=== PATIENT | female | born 1995 | race Caucasian/White ===

== ENCOUNTER 2024-10-24 20:34 | Emergency (ER) | payer OTHER, SELFPAY ==
--- OUTSIDE RECORDS SUMMARY | 2024-10-14 06:35 | XMS_ITS | Continuity of Care Document ---
Author Organization [facility] Address [address] [place] [address] Phone Care Team Providers Care Graphics Specialist Name Role Phone Natalie Mendiola DDS Unavailable Unavailable Advance Directives Directive Yes / No Effective Date File Name No Information Encounters Encounter Description Practice Location Reason(s) For Visit Diagnoses Date Provider Providers Copied on Encounter [facility], [address] [place] [address], [id number], [place] tel:[phone] Dental Clinic No Information Maury MORALES Natalie. . tel:[phone] Family History Family Member Type Diagnosis Age At Onset No Information Payers Payer name Insurance type Covered republican ID Authoriza tion(s) No Information Social History Type Description Quantity Date Captured Comments Sex Female Smoking Status No Information Sexual Orientation Straight or heterosexual Gender Identity Female Chief Complaint And Reason For Visit No Information Reason For Referral Reason For Referral No Information History Of Present Illness Encounter Date Complaint History Of Prese nt Illness No Information Functional Status Date Functional Assessmen t No Information Instructions Date Instruction Additional Infor mation No Information Assessments Type Assessment Date No Information Patient Care Teams Name Effective Dates (start - stop) Status Members No Information
[2024-10-24] VITALS (12 sets, daily range): BP systolic 123–146; BP diastolic 65–98; PULSE 47–67; TEMP 36.9; O2SAT 94–99; BMI 36.9
[2024-10-24 21:19] LABS: Hematocrit 41.6 % (36.0-48.0); Hemoglobin 14.6 g/dL (12.0-16.0); Mean Corpuscular HGB Conc 35.1 g/dL (29.9-35.2); Mean Corpuscular Hemoglobin 32.5 pg (26.7-34.0); Mean Corpuscular Volume 92.7 fL (81.0-99.0); Platelet Count 225 10^3/uL (150-450); Red Blood Count 4.49 10^6/uL (4.20-5.40); White Blood Count 5.8 10^3/uL (4.0-11.0)
[2024-10-24 21:28] LABS: Alanine Aminotransferase 70 U/L (14-59); Albumin Globulin Ratio 0.8; Albumin Level 3.9 g/dL (3.4-5.0); Alkaline Phosphatase 49 U/L (46-116); Anion Gap 17.7; Aspartate Amino Transferase 41 U/L (15-37); Blood Urea Nitrogen 16.0 mg/dL (7.0-18.0); Calcium 9.4 mg/dL (8.5-10.1); Carbon Dioxide 22.9 mmol/L (21.0-32.0); Chloride 104 mmol/L (98-107); Estimated GFR (African America >60 (>=60 mL/min/1.73m^2); Estimated GFR (Non-African Ame >60 (>=60 mL/min/1.73m^2); Globulin 4.7 g/dL; Glucose 177 mg/dL (74-106); Lipase 19.0 U/L (16.0-77.0); Magnesium 1.3 mg/dL (1.8-2.4); Potassium 3.6 mmol/L (3.5-5.1); Sodium 141 mmol/L (136-145); Total Protein 8.6 g/dL (6.4-8.2)
--- OUTSIDE RECORDS SUMMARY | 2024-10-24 21:33 | XMS_ITS | Patient Health Record ---
Author Organization [facility] es Address [address] [place] [address] Care Team Providers Care Loan Interviewer Mortgage Name Role Phone rosBrandi Wilcox Primary Care Provider Christiane Ornelas [phone] Allergies Allergen (clinical drug ingredient) Drug/Non Drug Allergy documented on EMR Reaction Allergy Type Onset Date Status Lourdes dentonjose alberto Drug Allergy Active Reason For Referral No Information Medications Medication SIG (Take, Route, Frequency, Duration) Notes Start Date End Date Status Nexplanon 68 MG as directed Subcutaneous Active hydrOXYzine Pamoate 25 MG 1 capsule as n eeded Orally Once a day; Duration: 10 days 11/04/2021 Active Cortisporin Otic 1%-0.35%-1000 units/ml 2-5 drops into each affected ear four times a day; Duration: 10 days Active Lexapro 10 MG 1 tablet Orally Once a day; Duration: 30 day(s) 11/04/2021 Active Social History Tobacco Use: Social History Observation Description Date Details (start date - stop date) Current Smoker NA - NA Tobacco Screen: Question Answer Notes Are you a: current smoker How often do you smoke cigarettes? every day How many cigarettes a day do you smoke? 6-10 How soon after you wake up do you smoke your fir st cigarette? after 60 min Are you interested in quitting? Not ready to tanya t Alcohol Screening: Question Answer Notes Did you have a drink containing alcohol in the p ast year? No Points 0 Interpretation Negative Depression Screening (PHQ-9): Question Answer Notes Little interest or pleasure in doing things More than half the days Feeling down, depressed, or hopeless More than h detention the days Trouble falling or staying a sleep, or sleeping too much Nearly every day Feeling tired or having little energy Several da ys Poor appetite or overeating Nearly every day Feeling bad about yourself-o r that you are a failure or have let yourself or your family down Nearly every day Trouble concentrating on thi ngs, such as reading the newspaper or watching television More than half the days Moving or speaking so slowly that other people could have noticed. Or the opposite being so fidgety or restless that you have been moving around a lot more than usual More than half the days Thoughts that you would be b shivani off , or of hurting yourself in some way Not at all Total Score 18 Intepretation Moderately severe depression Problems Problem Type SNOMED Code ICD Code Onset Dates Problem Status W/U Status Risk Notes Problem Panic attack (222613955) Panic attack (F41.0) Active confirmed Problem Moderate episode of recurrent major depressive disorder (F33.1) Active confirmed Plan Of Treatment No Information Insurance Providers Payer Name Payer Address Payer Phone Subscriber Number Group Number Insured Name Patient Relationship to Insured Coverage Start Date Coverage End Date z[employer] E-termed [address] [place] [address] [id number] [place] DICKENS Self - patient is the insured [address] [facility] after [employer] -termed [address] [place] [address] [id number] [place] DICKENS Self - patient is the insured 2 Medical (General) History Medical History History ICD Code 2 c sections rt knee tilt syndrome anxiety bipolar DEPRESSION panic attacks Surgical History Surgery Date(Month/Year) 2x c sections knee surgery Hospitalization History Reason Date(Month/Year) see above
--- OUTSIDE RECORDS SUMMARY | 2024-10-24 21:33 | XMS_ITS | Clinical Summary ---
Author Organization [facility] Address [address] [place] [address] Care Team Providers Care Ship Manager Name Role Phone Karla Kaur MD Primary Care Provider [phone] Karla Kaur MD Unavailable [phone] Allergies No known active allergies Medications multivitamin () 27-0.8 MG tabletIndications: Nexplanon removal Take 1 tablet by mouth Daily 90 tablet 3 08/07/19 25 026 Active Rimegepant Sulfate (Nurtec) 75 MG tablet dispersibleIndicat ions:Nonintractabl e episodic headache, unspecified headache type Take 75 mg by mouth every other day 30 tablet 1 08/07/19 25 Active clomiPHENE (Clomid) 50 MG tabletIndications: Anovulation Take day 5-9 of cycle 5 tablet 3 10/08/19 25 Active FLUoxetine (PROzac) 20 MG capsuleIndications :Anxiety Take 1 capsule (20 mg) by mouth Daily 100 capsule 3 10/22/19 25 026 Active ondansetron ODT (Zofran-ODT) 8 MG disintegrating tabletIndications: Nausea Take 1 tablet (8 mg) by mouth every 8 (eight) hours if needed for nausea or vomiting for up to 10 days 20 tablet 10/22/19 25 025 Active ondansetron ODT (Zofran-ODT) 8 MG disintegrating tabletIndications: Nausea Take 1 tablet (8 mg) by mouth every 8 (eight) hours if needed for nausea or vomiting for up to 10 days 20 tablet 05/24/19 25 025 Discontinu ed(Reorder ) FLUoxetine (PROzac) 20 MG capsuleIndications :Anxiety Take 1 capsule (20 mg) by mouth Daily 100 capsule 3 08/07/19 25 025 Discontinu ed(Reorder ) clomiPHENE (Clomid) 50 MG tabletIndications: Anovulation Take day 5-9 of cycle 5 tablet 3 09/26/19 25 025 Discontinu ed(Reorder ) clomiPHENE (Clomid) 50 MG tabletIndications: Irregular menses Take 1 tablet (50 mg) by mouth Daily for 4 days 4 tablet 3 10/08/19 25 025 Active Problems Problem Noted Date Diagnosed Date Moderate episode of recurrent major depressive d isorder 02/15/2023 Panic attack 02/15/2023 Encounters Date Type Department Care Team Description 10/21/2024 Telephone [facility] [address] [place] [address] Karla Kaur MD Med Refill 10/07/2024 3:30 PM EDT Office Visit JOHN PAUL [facility] [address] [place] [address] José Antonio Youssef MD Irregular menses; Abdominal pain, unspecified abdominal location; Menorrhagia with irregular cycle; Anovulation; Encounter for gynecological examination 10/07/2024 3:00 PM EDT Ancillary Procedure [facility] PA[facility] [address] [place] [address] Irregular menses; Lower abdominal pain 10/07/2024 Travel 09/25/2024 2:30 PM EDT Office Visit JOHN PAUL R[facility] [address] [place] [address] José Antonio Youssef MD Anovulation (Primary Dx); Encounter for gynecological examination; Irregular menses; Abdominal pain, unspecified abdominal location; Menorrhagia with irregular cycle 09/25/2024 Bamboo flowsheet [facility] [address] [place] [phone] José Antonio Youssef MD 09/25/2024 Travel 09/24/2024 Results Follow-Up [facility] [place] [facility] [address] [place] [address] José Antonio Youssef MD 09/23/2024 11:00 AM EDT Office Visit [facility] [place] [facility] [address] [place] [phone] José Antonio Youssef MD Encounter for gynecological examination; Irregular menses; Abdominal pain, unspecified abdominal location; Encounter for gynecological examination without abnormal finding; Encounter for screening for cervical cancer 09/23/2024 Travel 09/17/2024 Telephone [facility] [place] [facility] [address] [place] [address] Unallocated, John Paul Dillard MD 09/04/2024 [facility] [address] [place] [phone] Karla Kaur MD Care Coordination 08/29/2024 Patient Outreach [facility] [address] [place] [address] Pastora Camacho LPN 08/27/2024 11:50 AM EDT Office Visit [facility] [address] [place] [address] Emre Monetro DO Encounter for drug screening 08/27/2024 Travel 08/07/2024 Telephone [facility] [address] [place] [phone] Keyanna Giles Prior Authorization 08/06/2024 [facility] [address] [place] [phone] Keyanna Giles Anxiety; Nexplanon removal; Nonintractable episodic headache, unspecified headache type from Last 3 Months Social History Tobacco Use Types Packs/Day Years Used Date Smoking Tobacco: Former Cigarettes Smokeless Tobacco: Never Tobacco Cessation:Counseling Given: Not Answered Alcohol Use Standard Drinks/Week Comments Not Currently 0 (1 standard drink = 0.6 oz pur e alcohol) PHQ-2 Answer Date Recorded Patient Health Questionnaire-2 Score 0 02/15/2023 Comments No Sex and Gender Information Value Date Recorded Sex Assigned at Not on file Legal Sex Female 10:35 AM EST Gender Identity Not on file Sexual Orientation Not on file Last Filed Vital Signs Vital Sign Reading Time Taken Comments Blood Pressure 120/72 10/07/2024 3:46 PM EDT Pulse 63 03/10/2024 2:07 PM EST Temperature 36.8 C (98.3 F) 03/10/2024 2:07 PM EST Respiratory Rate - - Oxygen Saturation 99% 03/10/2024 2:07 PM EST Inhaled Oxygen Concentration - - Weight 102 kg (224 lb) 10/07/2024 3:46 PM EDT Height 167.6 cm (5' 6 ) 03/10/2024 2:07 PM EST Body Mass Index 36.15 03/10/2024 2:07 PM EST Plan of Treatment Upcoming Encounters Date Type Department Care Team (Late st Contact Info) Description 01/07/2025 2:45 PM EDT Office Visit JOHN PAUL [facility] [address] [place] [address] José Antonio Youssef MD [address] [facility] [address] [place] [address] Health Maintenance Due Date Last Done Comments Influenza Vaccine (#1) 2024 Pap Smear 02/05/2027 02/06/2024 Cervical Cancer Screening 09/23/2029 HPV/Cotest 09/23/2029 09/23/2024, 02/06/2024 Procedures Procedure Name Priority Date/Time Associated Diagnosis Comments US PELVIS TRANSVAGINAL Routine 10/07/2024 3:59 PM EDT Irregular menses Lower abdominal pain HCG, TOTAL, QL Routine 09/23/2024 12:23 PM EDT Irregular menses PROGESTERONE Routine 09/23/2024 12:23 PM EDT Irregular menses IGP, APT HPV,RFX 16/18,45 Routine 09/23/2024 12:00 AM EDT Encounter for gynecological examination without abnormal finding Encounter for screening for cervical cancer THIN PREP TIS PAP AND HR HPV DNA Routine 02/06/2024 2:20 PM EST from Last 3 Months or Most Recently Relevant to Health Maintenance Results * US pelvis transvaginal (10/07/2024 3:59 PM EDT) Anatomical Region Laterality Modality Pelvis Ultrasound Study GA Study Date Study NELSON Working NELSON (Source) 10/07/2024 Narrative 10/21/2024 9:54 AM EDT Images from the original result were not included. Obstetrics & Gynecology [address] [place] [address], [address] [address] [place] [address] - - - - - - - - - - - - - - - - - - - - - - - - - - - - - - - - - - - - - - - - - - - - - - - - - - - - - - - - - - - - - - - - - - - - Date of exam: 10/07/24 Patient name: Marjorie Taylor : 1995 Age: 29 y.o. - - - - - - - - - - - - - - - - - - - - - - - - - - - - - - - Indication: irregular menstrual bleeding, abdominal pain Surgical History: C/S Method: Transvaginal ultrasound examination View: Adequate - - - - - - - - - - - - - - - - - - - - - - - - - - - - - - - Measurements: Uterus: 9.7 x 5.0 x 6.0 cm Volume: 152.5 cm Endometrial thickness: 11.6 mm Right ovary: 3.8 x 2.9 x 2.5 cm Volume: 14.7 cm Left ovary: 3.1 x 1.6 x 1.7 cm Volume: 4.2 cm - - - - - - - - - - - - - - - - - - - - - - - - - - - - - - - Findings: Uterus: The uterus is normal in size and contour with the exception of c/section scar. Position: Retroverted Malformations: none Myometrium: The myometrium has a grainy inhomogeneous echo texture. The previous c/section area has some fullness which contains multiple tiny cystic spaces which could suggest adenomyosis. Fibroid(s): none Endometrium: The endometrium appears normal in contour and thickness, there are no overt polyps or submucosal fibroids visualized. The endometrium has a vague triple stripe proliferative appearance. Polyp(s): none Cervix: The cervix appears unremarkable. - - - - - - - - - - - - - - - - - - - - - - - - - - - - - - - Right ovary: Visualized Morphology: n/a Cyst(s): The right ovary contains a single thin-walled, sonolucent, peripheral vascularity cyst, measuring 1.9 x 1.5 x 2.3 cm. This is suspected to represent a functional ovarian cyst. Doppler: power doppler shows ovarian blood profusion Right adnexa: no overt adnexal mass Ovarian mobility: The ovary seems to slide when the patient's abdomen is palpated while using the transvaginal ultrasound probe to move the uterus. - - - - - - - - - - - - - - - - - - - - - - - - - - - - - - - Left ovary: Visualized Morphology: normal appearing Cyst(s): none Doppler: power doppler shows ovarian blood profusion Left adnexa: no overt adnexal mass Ovarian mobility: The ovary seems to slide when the patient's abdomen is palpated while using the transvaginal ultrasound probe to move the uterus. - - - - - - - - - - - - - - - - - - - - - - - - - - - - - - - Cul de Sac: mild free fluid within the posterior cul-de-sac - - - - - - - - - - - - - - - - - - - - - - - - - - - - - - - - - - - - - - - - - - - - - - - - - - - - - - - - - - - - - - - - - - - - Impression: Transvaginal scans of the pelvis were obtained. The uterus is normal in size and contour. The myometrium is inhomogenous in echotexture without overt fibroid. There is some fullness at the previous c/section scar area which could represent some endometriosis. The endometrium is normal in contour and measures 11.6 mm in thickness. Both ovaries are visible and appear normal in size and echotexture. There is no overt adnexal mass. There is no free fluid visible within the pelvis. There are no previous pelvic ultrasound images or reports available for comparison. - - - - - - - - - - - - - - - - - - - - - - - - - - - - - - - - - - - - - - - - - - - - - - - - - - - - - - - - - - - - - - - - - - - - José Antonio Youssef MD IMG US PROCEDURES Final Result * Progesterone (09/23/2024 12:23 PM EDT) Progesterone 0.8 ng/mL [facility] Comment: Follicular phase 0.1 - 0.9 Luteal phase 1.8 - 23.9 Ovulation phase 0.1 - 12.0 First trimester 11.0 - 44.3 Second trimester 25.4 - 83.3 Third trimester 58.7 - 214.0 Postmenopausal 0.0 - 0.1 Blood Venous blood specimen / Unknown 09/23/2024 12:23 PM EDT 09/23/2024 Narrative [facility] - 09/24/2024 1:07 PM EDT Performed at: 01 - [address] [id number] Measurement Operator: Paul Honeycutt PhD, Phone: [phone] José Antonio Youssef MD LAB BLOOD ORDERABLES Final Res ult [facility] * hCG, qualitative (09/23/2024 12:23 PM EDT) HCG,BETA SUBUNIT,QUAL Negative Negative <6 mIU/mL [facility] Blood Venous blood specimen / Unknown 09/23/2024 12:23 PM EDT 09/23/2024 Narrative [facility] - 09/24/2024 1:07 PM EDT Performed at: - [address] [id number] Measurement Operator: Paul Honeycutt PhD, Phone: [phone] us José Antonio Youssef MD LAB BLOOD ORDERABLES Final Res ult [facility] * IGP, APT HPV,RFX 16/18,45 (09/23/2024 12:00 AM EDT) Diagnosis: Comment [facility] Comment:NEGATIVE FOR INTRAEP ITHELIAL LESION OR MALIGNANCY. Specimen Adequacy: Comment [facility] Comment: Satisfactory for evaluation. Endocervical and/or squamous metaplastic cells (endocervical component) are present. Clinician Provided ICD10: Comment [facility] Comment: Z01.419 Z12.4 Performed By: Comment [facility] Comment:Ricardo Lindquist ytologist (ASCP) Cyto Comments . [facility] Note: Comment [facility] Comment: The Pap smear is a screening test designed to aid in the detection of premalignant and malignant conditions of the uterine cervix. It is not a diagnostic procedure and should not be used as the sole means of detecting cervical cancer. Both false-positive and false-negative reports do occur. Test Methodology: Comment [facility] Comment: This liquid based ThinPrep(R) pap test was screened with the use of an image guided system. HPV Aptima Negative Negative [facility] Comment: This nucleic acid amplification test detects fourteen high-risk HPV types (16,18,31,33,35,39,45,51,52,56,58,59,66,68) without differentiation. Vaginal Fluid 09/23/2024 09/24/2024 Narrative [facility] - 09/25/2024 5:07 PM EDT Performed at: - [address] [id number] Measurement Operator: Alyssa Yañez MD, Phone: [phone] Performed at: - [address] [id number] Measurement Operator: Alyssa Yañez MD, Phone: [phone] Specimen Comment: No. of containers..01 ThinPrep Vial us José Antonio Youssef MD LAB BLOOD ORDERABLES Final Res ult [facility] * THIN PREP TIS PAP AND HR HPV DNA (02/06/2024 2:20 PM EST) CLINICAL INFORMATION [facility] Comment:APOHR,APOHRNG LMP [facility] Comment:N/G PREV. PAP [facility] Comment:N/G PREV. BX [facility] Comment:N/G SOURCE [facility] Comment:Vagina, Cervix STATEMENT OF ADEQUACY [facility] Comment: Satisfactory for evaluation. Endocervical/transformation zone component present. INTERPRETATION/RESU LT [facility] Comment: Cytology Results: Negative for intraepithelial lesion or malignancy. COMMENT [facility] Comment: This Pap test has been evaluated with computer assisted technology. INCISING MACHINE OPERATOR [facility] Comment: PCJ, SCT(ASCP) CT screening location: [place] [address]. REVIEW INCISING MACHINE OPERATOR [facility] Comment: LLT, CT(ASCP) CT screening location: [place] [address]. (ALWAYS MESSAGE) [facility] Comment: EXPLANATORY NOTE: The Pap is a screening test for cervical cancer. It is not a diagnostic test and is subject to false negative and false positive results. It is most reliable when a satisfactory sample, regularly obtained, is submitted with relevant clinical findings and history, and when the Pap result is evaluated along with historic and current clinical information. HPV DNA, HIGH RISK, CERVICAL Not Detected NOT DETECTED [facility] Comment: Not Detected High Risk HPV types (16,18,31,33,35,39,45,51,52, 56,58,59,66,68) were not detected. Other HPV types which cause anogenital lesions may be present. The significance of the other types of HPV in malignant processes has not been established. Methodology: Real Time PCR 02/06/2024 2:20 PM EST 02/07/2024 3:40 AM EST Narrative [facility] - 02/11/2024 7:57 AM EST FASTING:UNKNOWN FASTING: UNKNOWN Resulting Agency Comment Performing Organization Information Site ID: [id number] Name: [facility] [place] Address: [address] [place] [address] [place] [address] Director: Mehrdad Varghese M.D.,PhD Site ID: [id number] Name: [facility] Address: [address] [facility] [place] [address] Director: Allen Martinez MD us Karla Kaur MD LAB CYTOLOGY ORDERABLES Final Result [facility] from Last 3 Months or Most Recently Relevant to Health Maintenance Insurance [employer] Care Teams Ship Manager Relationship Specialty Start Date End Date Karla Kaur MD [address] [place] [address] PCP - General Family Medicine 02/07/23 Karla Kaur MD [address] [place] [address] PCP - [facility] 09/17/23
--- OUTSIDE RECORDS SUMMARY | 2024-10-24 21:33 | XMS_ITS | Encounter Summary ---
Author Organization [facility] Address [address] [place] [address] Care Team Providers Care Email Deployment Specialist Name Role Phone Karla Kaur MD Primary Care Provider [phone] Karla Kaur MD Unavailable [phone] Reason for Visit * Reason Onset Date Comments Med Refill 10/21/2024 Encounter Details Date Type Department Care Team (Late st Contact Info) Description 10/21/2024 Telephone [facility] [address] [place] [phone] Karla Kaur MD [address] [place] [address] Med Refill Social History Tobacco Use Types Packs/Day Years Used Date Smoking Tobacco: Former Cigarettes Smokeless Tobacco: Never Alcohol Use Standard Drinks/Week Comments Not Currently 0 (1 standard drink = 0.6 oz pur e alcohol) PHQ-2 Answer Date Recorded Patient Health Questionnaire-2 Score 0 02/15/2023 Comments No Sex and Gender Information Value Date Recorded Sex Assigned at Not on file Legal Sex Female 10:35 AM EST Gender Identity Not on file Sexual Orientation Not on file documented as of this encounter Miscellaneous Notes * Addendum Note - Karla Kaur MD - 10/21/2024 3:49 PM EDTAddended by: KARLA KAUR on: 10/21/2024 03:49 PM Modules accepted: Orders * Telephone Encounter - Carlos Cazares - 10/21/2024 3:27 PM EDT Pt needs a refill on prozac She is also asking for a refill on her nausea medication Please send to [facility] [place] documented in this encounter Plan of Treatment Upcoming Encounters Date Type Department Care Team (Late st Contact Info) Description 01/07/2025 2:45 PM EDT Office Visit [facility] [address] [place] [phone] José Antonio Youssef MD [address] [place] [address] documented as of this encounter Visit Diagnoses Diagnosis Anxiety Anxiety state, unspecified Nausea Nausea alone documented in this encounter Care Teams Email Deployment Specialist Relationship Specialty Start Date End Date Karla Kaur MD [address] [place] [address] PCP - General Family Medicine 02/07/23 Karla Kaur MD [address] [place] [address] PCP - [facility] 09/17/23 documented as of this encounter
[2024-10-24] MEDS: 0.9 % SODIUM CHLORIDE 1,000 ML 1000 ML IV (21:34)
[2024-10-24] MEDS: FAMOTIDINE/PF 20 MG/2 ML VIAL IV (21:34)
[2024-10-24] MEDS: HALOPERIDOL LACTATE 5 MG/ML VIAL 2.5 MG IV (21:34)
--- NOTE | 2024-10-24 21:36 | CT_ITS ---
The [address] [address] Patient Name: MON[place] DICKENS MRN: [facility]:[id number] date: 1995 Sex: F Assigned Patient Location: ER Current Patient Location: ER Accession/Order Number: [id number] Exam Date: 10/24/2024 22:45 Report Date: 10/24/2024 22:48 At the request of: MICHAEL GARIBAY DO Procedure: CT abdomen pelvis w con CT ABDOMEN AND PELVIS WITH INTRAVENOUS CONTRAST: CLINICAL HISTORY: abdominal pain COMPARISON: None TECHNIQUE: Spiral images were obtained through the abdomen and pelvis following the administration of intravenous contrast. This CT exam was performed using one or more following dose reduction techniques: Automated exposure control, adjustment of the mA and/or kV according to patient size, or use of iterative reconstruction technique. FINDINGS: Lung Bases: [Lung bases are clear] small hiatal hernia Organs:Liver, gallbladder, spleen, adrenals, kidneys, pancreas unremarkable.[ GI: Mild retained stool. No bowel obstruction. Appendix unremarkable.[ Pelvis:[Uterus unremarkable. No adnexal mass. Bladder wall thickening possibly related to under distention. Peritoneum/Retroperitoneum:No free air or free fluid. Aorta unremarkable caliber.[ Abd wall/Bones:No suspicious osseous lesions. [ CT/CT abdomen pelvis w con IMPRESSION: Negative acute inflammatory process or bowel obstruction. Impression dictated by: José Miguel Hamilton M.D. 10/24/2024 10:48 PM Dictation Location: [place] [address] Electronically authenticated by: [id number] Y Date: 10/24/2024 22:48
[2024-10-24] MEDS: DIPHENHYDRAMINE HCL 50 MG/ML VIAL 25 MG IVP (21:40)
[2024-10-24 21:49] LABS: Basophils Abs Manual 0.00 10^3/uL (0.00-0.10); Basophils Percent Manual 0.0 % (0.2-2.0); Eosinophils Absolute Manual 0.00 10^3/uL (0.00-0.70); Eosinophils Percent Manual 0.0 % (0.9-7.0); Lymphocytes Absolute Manual 0.58 10^3/uL (1.20-3.80); Lymphocytes Percent Manual 10.0 % (20.5-60.0); Monocytes Absolute Manual 0.11 10^3/uL (0.30-0.80); Monocytes Percent Manual 2.0 % (1.7-12.0); Segmented Neut Absolute Manual 5.10 10^3/uL (1.4-6.5); Segmented Neutrophils % Manual 88.0 (43.0-75.0)
[2024-10-25] VITALS: BP 127/74; PULSE 48; O2SAT 96
[2024-10-25 00:10] VITALS: PULSE 50; O2SAT 96
[2024-10-25 00:20] VITALS: PULSE 49; O2SAT 95
[2024-10-25 00:30] VITALS: BP 128/76; PULSE 48; O2SAT 97
[2024-10-25 00:40] VITALS: PULSE 49; O2SAT 96
[2024-10-25 00:50] VITALS: PULSE 46; O2SAT 97
--- NOTE | 2024-10-25 06:52 | ED.GENADUL1 ---
HPI HPI - General Adult General Chief complaint: Nausea/Vomiting/Diarrhea Time Seen by Provider: 10/24/24 20:44 Source: patient Mode of arrival: Wheelchair Limitations: no limitations History of Present Illness HPI narrative: Patient is a 29-year-old female presenting to the emergency department for concerns of vomiting and generalized weakness. Patient states she has a history of nausea/vomiting, and frequently experiences episodes like this. She states that over the last 24 hours she has been extremely tired and has had persistent vomiting. She endorses upper abdominal pain. No constipation or diarrhea. No fevers or chills. No chest pain or shortness of breath. She has not smoked marijuana for over 3 weeks. She denies being . She has had 2 C-sections in the past, but denies any other prior intra-abdominal surgeries. She denies any dysuria or hematuria. No vaginal bleeding. Denies being . Related Data Allergies Allergy/AdvReac Type Severity Reaction Status Date / Time No Known Drug Allergies Allergy Verified 10/24/24 20:45 Opioid HPI Opioid Management Most Recent Opioid Data: Last Pain Scale 6 10/24/24, 20:45 Review of Systems ROS Status of ROS 10 or more systems reviewed and unremarkable except as noted in history and below PFSH PFSH Social History Little interest or pleasure in doing things: not at all Feeling down, depressed, or hopeless: not at all Exam Narrative Exam Narrative: CONSTITUTIONAL: Patient appears quite uncomfortable and ill, actively vomiting clear emesis, able to answer questions and vomits, appropriately SKIN: Was warm and dry. EYES: No scleral icterus. No conjunctival pallor. EARS, NOSE, THROAT: Dry mucous membranes. RESPIRATORY: Clear to auscultation bilaterally, no wheezes, crackles, or stridor, no use of accessory muscles CARDIOVASCULAR: Bradycardic rate and regular rhythm. There is no S3, S4, murmur, rub. GASTROINTESTINAL: Tender to palpation in the epigastrium. No rebound tenderness or guarding. Nondistended. Negative Moreno sign. No right upper quadrant tenderness. MUSCULOSKELETAL: No peripheral edema. NEUROLOGIC: Patient is awake and alert. Facies were symmetrical. Constitutional Vital Signs, click to edit/add: Last Vital Signs Temp 98.5 F 10/24/24 20:45 Pulse 46 L 10/25/24 00:50 Resp 16 10/25/24 00:50 BP 128/76 10/25/24 00:30 Pulse Ox 97 10/25/24 00:50 O2 Del Method Room Air 10/24/24 20:45 Course Vital Signs Vital signs: Vital Signs Temperature 98.5 F 10/24/24 20:45 Pulse Rate 67 10/24/24 20:45 Respiratory Rate 18 10/24/24 20:45 Blood Pressure 146/98 H 10/24/24 20:45 Pulse Oximetry 99 10/24/24 20:45 Oxygen Delivery Method Room Air 10/24/24 20:45 Temperature 98.5 F 10/24/24 20:45 Pulse Rate 46 L 10/25/24 00:50 Respiratory Rate 16 10/25/24 00:50 Blood Pressure 128/76 10/25/24 00:30 Pulse Oximetry 97 10/25/24 00:50 Oxygen Delivery Method Room Air 10/24/24 20:45 Medical Decision Making MDM Narrative Medical decision making narrative: Patient is a 29-year-old female presenting to the emergency department with 24-hour history of nausea and vomiting. Vital signs on arrival were significant for bradycardia, otherwise were within normal limits. She is afebrile and hemodynamically stable. Examination as noted above. She does have tenderness to palpation in the epigastrium without peritoneal signs. Differential diagnosis includes acute on chronic cyclical vomiting, cannabinoid hyperemesis syndrome, pancreatitis, gastritis, and less likely appendicitis. IV was established and laboratory studies were obtained. CT abdomen/pelvis was ordered. She was treated with IV Haldol, IV Benadryl, IV famotidine, and 1 L bolus normal saline. Laboratory studies were significant for mild transaminitis. No hyperbilirubinemia. Mild hypomagnesemia. No other significant electrolyte or metabolic derangements. No leukocytosis or anemia. Lipase nonelevated. test negative. CT abdomen/pelvis independently reviewed/interpreted by myself demonstrated no acute intra-abdominal processes. After monitoring the patient in the emergency department for 4 hours, she is now feeling significantly improved. She ambulated around emergency department under her own power and tolerated p.o. She feels comfortable being discharged home. I do believe the patient is stable for discharge at this time. They were instructed to follow up with her PCP for further care. Return precautions were given including any new or worsening symptoms. Patient understands and agrees to the plan. Medical Records Medical records reviewed: Yes I reviewed the patient's medical records Lab Data Lab results reviewed: Yes I reviewed the patient's lab results Labs: Lab Results 10/24/24 Range/Units 21:02 WBC 5.8 (4.0-11.0) 10^3/uL RBC 4.49 (4.20-5.40) 10^6/uL Hgb 14.6 (12.0-16.0) g/dL Hct 41.6 (36.0-48.0) % MCV 92.7 (81.0-99.0) fL MCH 32.5 (26.7-34.0) pg MCHC 35.1 (29.9-35.2) g/dL RDW 12.2 (11.0-15.0) % Plt Count 225 (150-450) 10^3/uL MPV 10.0 (9.5-13.5) fL Seg Neuts % (Manual) 88.0 H (43.0-75.0) Lymphocytes % (Manual) 10.0 L (20.5-60.0) % Monocytes % (Manual) 2.0 (1.7-12.0) % Eosinophils % (Manual) 0.0 L (0.9-7.0) % Basophils % (Manual) 0.0 L (0.2-2.0) % Neutrophils # (Manual) 5.10 (1.4-6.5) 10^3/uL Lymphocytes # (Manual) 0.58 L (1.20-3.80) 10^3/uL Monocytes # (Manual) 0.11 L (0.30-0.80) 10^3/uL Eosinophils # (Manual) 0.00 (0.00-0.70) 10^3/uL Basophils # (Manual) 0.00 (0.00-0.10) 10^3/uL Sodium 141 (136-145) mmol/L Potassium 3.6 (3.5-5.1) mmol/L Chloride 104 (98-107) mmol/L Carbon Dioxide 22.9 (21.0-32.0) mmol/L Anion Gap 17.7 BUN 16.0 (7.0-18.0) mg/dL Creatinine 0.92 (0.55-1.02) mg/dL Est GFR ( Amer) >60 (>=60 mL/min/1.73m^2) Est GFR (Non-Af Amer) >60 (>=60 mL/min/1.73m^2) BUN/Creatinine Ratio 17.4 Glucose 177 H (74-106) mg/dL Calcium 9.4 (8.5-10.1) mg/dL Magnesium 1.3 L (1.8-2.4) mg/dL Total Bilirubin 0.2 (0.2-1.0) mg/dL AST 41 H (15-37) U/L ALT 70 H (14-59) U/L Alkaline Phosphatase 49 (46-116) U/L Total Protein 8.6 H (6.4-8.2) g/dL Albumin 3.9 (3.4-5.0) g/dL Globulin 4.7 g/dL Albumin/Globulin Ratio 0.8 Lipase 19.0 (16.0-77.0) U/L Serum HCG, Qual Negative (NEGATIVE) Imaging Data CT scan - abdomen: Attestation: I personally reviewed and interpreted this imaging study as follows: Radiologist's impression: ITS Impressions Abdomen/Pelvis CT 10/24/24 21:36 IMPRESSION: Negative acute inflammatory process or bowel obstruction. Impression dictated by: José Miguel Hamilton M.D. 10/24/2024 10:48 PM Dictation Location: [place] [id number] Electronically authenticated by: [id number] Y Date: 10/24/2024 22:48 Discharge Plan Discharge Chief Complaint: Nausea/Vomiting/Diarrhea Clinical Impression: Cyclical vomiting Patient Disposition: Home, Self-Care Time of Disposition Decision: 01:12 Condition: Good Mode of Transportation: Private Vehicle Print Language: [place] Citizen Instructions: Acute Nausea and Vomiting (ED) Referrals: Physician,Non-Staff, MD [Primary Care Provider] - 1 week Discharge Date/Time: 10/25/24 01:30
== END 2024-10-25 01:30 | disposition home or self-care (01) ==
PROVIDERS: Emergency Provider Student in an Organized Health Care Education/Training Program
DX: R11.15 Cyclical vomiting syndrome unrelated to migraine (principal); R53.1 Weakness
CPT/HCPCS: 36415; 74177; 80053; 83690; 83735; 84703; 85007; 85027; 96361; 96374; 96375; 99285; J1200; J1630; J3490; Q9967